=== PATIENT | male | born 1980 | race African-American/Black ===

== ENCOUNTER 2020-03-19 08:39 | Emergency (ER) | payer SELFPAY | END 2020-03-19 09:11 | disposition home or self-care (01) | LOC: ERS 08:39 | DX: J02.9 Acute pharyngitis, unspecified (principal) | CPT/HCPCS: 99282 ==

== ENCOUNTER 2020-03-20 09:24 | Emergency (ER) | payer SELFPAY ==
[2020-03-20] MEDS ORDERED: Ibuprofen 100 MG/5 ML UDCUP ONE (10:39)
== END 2020-03-20 10:43 | disposition home or self-care (01) ==
LOC: ERS 09:24
DX: J02.9 Acute pharyngitis, unspecified (principal)
CPT/HCPCS: 87081; 87430; 99281